=== PATIENT | female | born 1950 | race Caucasian/White ===

== ENCOUNTER 2017-03-24 16:46 | Emergency (ER) | payer MEDICARE, OTHER ==
[~2017-03-24] VITALS: Ht 162.6 cm; Wt 77.1 kg
[~2017-03-24 16:46] MED LIST: HYDR25TA4 PO; Nystatin PO
[2017-03-24 16:50] VITALS: BP 143/100
[2017-03-24] MEDS ORDERED: predniSONE 20 MG TABLET ONE (17:11)
[2017-03-24] MEDS ORDERED: diphenhydrAMINE HCL 25 MG CAPSULE ONE (17:11)
[2017-03-24] MEDS ORDERED: predniSONE 20 MG TABLET PO ONE (17:30)
[2017-03-24] MEDS ORDERED: DIPHENHYDRAMINE HCL 12.5 MG/5 ML UDC PO ONE (17:30)
[2017-03-24 17:39] LABS: CALCIUM, SERUM 9.6 mg/dL (8.5-10.1); CREATININE 1.4 mg/dL (0.6-1.3); POTASSIUM 2.9 mmol/L (3.5-5.1)
== END 2017-03-24 18:08 | disposition home or self-care (01) ==
LOC: ER 16:47
DX: R21 Rash and other nonspecific skin eruption (principal); R79.89 Other specified abnormal findings of blood chemistry; I10 Essential (primary) hypertension; Z88.1 Allergy status to other antibiotic agents; Z88.2 Allergy status to sulfonamides
CPT/HCPCS: 36415; 80048; 82962; 99283; A4606; J7512; Q0163 ×2; Z7610

== ENCOUNTER 2021-04-17 11:00 | Emergency (ER) | payer MEDICARE, OTHER ==
[~2021-04-17] VITALS: Ht 152.4 cm; Wt 70.8 kg
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
--- NOTE | 2021-04-17 11:10 | NUR ---
DR DONATO AT THE BEDSIDE
--- NOTE | 2021-04-17 11:20 | NUR ---
TAKEN TO CT
--- NOTE | 2021-04-17 11:39 | NUR ---
THE PATIENT IS BACK FROM CT
[2021-04-17] MEDS: IBUPROFEN 600 MG TABLET PO ONE (11:49)
[2021-04-17] MEDS ORDERED: IBUPROFEN 600 MG TABLET ONE (11:50)
[2021-04-17] MEDS ORDERED: IBUP-1955 PO (12:24)
[2021-04-17 12:52] VITALS: BP 141/84
--- NOTE | 2021-04-17 12:52 | NUR ---
Patient discharged to home in stable condition. Written and verbal after care instructions given. Patient verbalizes understanding of instruction.
== END 2021-04-17 12:52 | disposition home or self-care (01) ==
LOC: ER 11:05
DX: R51.9 Headache, unspecified (principal); R07.89 Other chest pain; M54.50 Low back pain, unspecified; M25.512 Pain in left shoulder; M79.605 Pain in left leg; I10 Essential (primary) hypertension; Z88.2 Allergy status to sulfonamides; Z88.1 Allergy status to other antibiotic agents; Z79.899 Other long term (current) drug therapy; V49.49XA Driver injured in collision with other motor vehicles in traffic accident, initial encounter; Y93.89 Activity, other specified; Y92.413 State road as the place of occurrence of the external cause; Y99.8 Other external cause status
CPT/HCPCS: 70450-TC; 71045-TC; 72110-TC

== ENCOUNTER 2023-02-22 11:28 | Emergency (ER) | payer MEDICARE, OTHER ==
[~2023-02-22] VITALS: Ht 157.5 cm; Wt 79.4 kg
[~2023-02-22 11:28] MED LIST changes: +IBUP-1955 PO
[2023-02-22] MEDS ORDERED: ACETAMINOPHEN ES 500 MG TABLET ONE (11:53)
[2023-02-22] MEDS ORDERED: ACETAMINOPHEN ES 500 MG TABLET PO ONE (12:00)
[2023-02-22] MEDS ORDERED: IV NS 0.9% 1,000 ML BAG IV ONE (12:00)
[2023-02-22 12:19] LABS: BASOPHILS # (AUTO) 0.1 K/uL (0.0-0.2); BASOPHILS % (AUTO) 0.6 % (0.0-2.0); HEMATOCRIT 36 % (33-45); HEMOGLOBIN 12.1 g/dL (11.5-14.8); LYMPHOCYTES # (AUTO) 1.6 K/uL (0.8-4.8); LYMPHOCYTES % (AUTO) 11.8 % (20.0-44.0); MEAN CORPUSCULAR HEMOGLOBIN 28 PG (26.0-33.0); MEAN CORPUSCULAR HGB CONC 34 g/dl (31.0-36.0); MEAN CORPUSCULAR VOLUME 82 fL (82-100); MONOCYTES % (AUTO) 7.6 % (2.0-12.0); NEUTROPHILS # (AUTO) 10.9 K/uL (1.8-8.9); PLATELET COUNT (AUTO) 236 K/uL (150-450); RED BLOOD CELL COUNT(AUTO) 4.39 MIL/uL (4.0-5.2); RED CELL DISTRIBUTION WIDTH 14.1 % (11.5-15.0); WHITE BLOOD COUNT (AUTO) 13.6 K/uL (4.3-11.0)
[2023-02-22 12:33] LABS: CALCIUM, SERUM 9.4 mg/dL (8.5-10.1); CARBON DIOXIDE 24 mmol/L (21-32); CHLORIDE 94 mmol/L (98-107); CREATININE 1.3 mg/dL (0.6-1.3); GLUCOSE 208 mg/dL (74-106); SODIUM SERUM 129 mmol/L (136-145); UREA NITROGEN, BLOOD 21 mg/dL (7-18)
[2023-02-22 12:39] LABS: ALANINE AMINOTRANSFERASE 23 U/L (12-78); ALBUMIN 2.9 g/dL (3.4-5.0); ALKALINE PHOSPHATASE 55 U/L (46-116); ASPARTATE AMINOTRANSFERASE 20 U/L (15-37); BILIRUBIN,DIRECT 0.2 mg/dL (0.0-0.2); BILIRUBIN,TOTAL 0.5 mg/dL (0.2-1.0); TOTAL PROTEIN, SERUM 8.2 g/dL (6.4-8.2)
[2023-02-22] MEDS ORDERED: LEVO750T46 PO (14:59)
[2023-02-22] MEDS ORDERED: LEVOFLOXACIN (250MG) 250 MG TABLET ONE (15:09)
[2023-02-22 15:22] VITALS: BP 116/80; TEMP 98.1; O2SAT 97
[2023-02-22] MEDS ORDERED: LEVOFLOXACIN (250MG) 250 MG TABLET PO ONE (15:30)
== END 2023-02-22 15:23 | disposition home or self-care (01) ==
LOC: ER 11:28
DX: J18.9 Pneumonia, unspecified organism (principal); E11.65 Type 2 diabetes mellitus with hyperglycemia; R53.1 Weakness; R55 Syncope and collapse; E87.6 Hypokalemia; E88.09 Other disorders of plasma-protein metabolism, not elsewhere classified; D72.829 Elevated white blood cell count, unspecified; I10 Essential (primary) hypertension; Z88.2 Allergy status to sulfonamides; Z88.8 Allergy status to other drugs, medicaments and biological substances
CPT/HCPCS: 99285; 96360; 71045; 93005; 85025; 80048; 80076; 36415; 84443; 84484; 82962; J7030